=== PATIENT | male | born 1980 | race Caucasian/White ===

== ENCOUNTER 2020-12-31 19:50 | Observation (INO) | payer OTHER ==
[~2020-12-31] VITALS: Ht 177.8 cm; Wt 90.7 kg
--- NOTE | ~2020-12-31 | OP ---
[address] [address] OPERATIVE REPORT Name: SHANTEL CROWDER Room: [address] Domenico#: [id number] Admission: 01/01/21 Attend Phys: Virgie Kapoor MD Discharge: Date of : 82 Report #: [id number] THIS REPORT FOR: cc: FAM - No family physician/PCP FAM - No family physician/PCP Tae Lujan MD ~ DATE OF SURGERY: 01/01/2021 PREOPERATIVE DIAGNOSIS: An 8 mm x 10 mm mid right ureteral stone with proximal hydronephrosis. POSTOPERATIVE DIAGNOSIS: An 8 mm x 10 mm mid right ureteral stone with proximal hydronephrosis. PROCEDURE: Cystoscopy, right retrograde pyelogram, right ureteroscopy, holmium laser lithotripsy, a partial stone extraction and a right ureteral stent placement with attached string. STAFF SURGEON: Tae Lujan MD VISUAL ARTIST: None. ANESTHESIA: General. ESTIMATED BLOOD LOSS: None. COMPLICATIONS: None. SPECIMEN: Right ureteral stone fragments. DRAINS: A 28 cm x 6-Macanese right ureteral stent with attached string. INDICATIONS: The patient is a pleasant 40-year-old male with no prior personal history of kidney stones, but father has a history of kidney stones who presented with acute onset right flank pain. CT scan confirmed a 9 mm x 8 mm stone about the iliac vessels on the right hand side with proximal hydronephrosis. He was counseled regarding treatment options, elected for definitive cystoscopy, right retrograde pyelogram, right ureteroscopy, possible holmium laser lithotripsy, possible placement of right ureteral stent. After the risks and benefits of the procedure were explained, informed consent was obtained. DESCRIPTION OF PROCEDURE: The patient was taken to the operating room, comfortably placed in the dorsal lithotomy position under adequate general anesthesia. He was sterilely prepped and draped in standard fashion exposing only the genitalia. He received his [place] [address] OPERATIVE REPORT Name: SHANTEL CROWDER Sanjay Room: [address]Kevin.#: [id number] Admission: 01/01/21 Attend Phys: Virgie Kapoor MD Discharge: Date of : 82 Report #: [id number] Appropriate timeout was carried out and all were in agreement. A 22-Macanese cystoscope was placed into the urethra. Anterior urethra was normal. Sphincter was intact. Prostate showed minimal hyperplasia. Bladder was systematically viewed. Both ureteral orifices identified normal. No bladder calculi seen or formed. Bladder mucosa was smooth. A 5-Macanese open-ended ureteral catheter placed in the right ureteral orifice and a retrograde pyelogram performed showing kind of a narrow caliber ureter to a large filling defect about the iliac vessels and dilation more proximally. An 0.035 glidewire was gently placed up the right ureter and left kidney. Cystoscope was removed. A 4.5-Macanese tapered to a 6.5-Macanese Mccabe semi-rigid ureteroscope advanced through the urethra up the right ureter. A 200 micron holmium laser fiber set at 6.4 constantino fragmented the stone into multiple fragments. Stone was extremely hard, broke it into about 10 different fragments, removed 3 of them. In the process of describing the stones and breaking up, he has had the laser, had the septum, elected to go ahead and place a stent with this attached string. The cystoscope was then removed. The remaining fragments should be small enough to pass. A 28 cm x 6-Macanese ureteral stent was put in place and positioned with good coil in the right renal pelvis and good coil in the bladder. The bladder was drained. Cystoscope was then removed. He tolerated the procedure extremely well. He was extubated in the operating room, transferred to [facility] with assistance and went to recovery in stable condition. String left attached, secured to outside of the phallus with a Tegaderm. A 20 mL of lidocaine jelly was placed into the urethra. He may remove the stent on Thursday. Follow up in our office in 6 weeks with a renal ultrasound and KUB. By: [id number] Lujan MD /rohit
[2020-12-31] MEDS ORDERED: NOHOMEMEDICATIONS (20:04)
[2020-12-31 22:20] LABS: URINE BILIRUBIN NEGATIVE (Negative); URINE BLOOD 3+ (Negative); URINE CLARITY CLEAR; URINE COLOR YELLOW; URINE GLUCOSE-RANDOM NEGATIVE (Negative); URINE KETONES 3+ (Negative); URINE LEUKOCYTES-REFLEX NEGATIVE (Negative); URINE NITRITE-REFLEX NEGATIVE (Negative); URINE PROTEIN 1+ (Negative); URINE SPECIFIC GRAVITY 1.015 (1.005-1.030); URINE UROBILINOGEN 0.2 E.U./dl (0.2-1.0)
[2020-12-31 22:22] LABS: ACETEST (KETONE CONFIRMATORY) Moderate (Negative)
[2020-12-31 22:25] LABS: SQUAMOUS 0-3 Few /LPF (0-3)
[2020-12-31 22:26] LABS: BACTERIA-REFLEX 1-9 Few /HPF (None Seen); CASTS None Seen /LPF (None Seen); CRYSTALS None Seen /LPF (None Seen); URINE RBC >20 Many /HPF (0-2); URINE WBC-REFLEX 0-5 Rare /HPF (0-5)
[2020-12-31 22:33] LABS: HEMATOCRIT 44.1 % (42.0-52.0); HEMOGLOBIN 15.4 gm/dL (14.0-18.0); MCH 28.2 pg (26.0-34.0); MCV 80.6 fL (80.0-100.0); MPV 7.8 fl. (7.2-11.1); RBC 5.48 mil/uL (4.50-6.00); RDW-CV 13.9 % (10.5-14.5); WBC 9.5 thou/uL (4.0-11.0)
[2020-12-31 22:40] LABS: CALCIUM 8.8 mg/dL (8.5-10.1); CREATININE 1.1 mg/dL (0.6-1.3); POTASSIUM 3.2 mmol/L (3.5-5.1)
[2020-12-31 22:44] LABS: ALBUMIN 4.3 g/dL (3.4-5.0); TOTAL BILIRUBIN 1.2 mg/dL (<0.1-1.0); TOTAL PROTEIN 7.6 g/dL (6.4-8.2)
[2021-01-01 04:00] VITALS: BP 137/79
[2021-01-01 06:28] VITALS: BP 137/79
[2021-01-01 08:00] VITALS: BP 132/68
[2021-01-01 09:29] VITALS: BP 132/68
--- NOTE | 2021-01-01 09:33 | EKG ---
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
[2021-01-01] MEDS ORDERED: HYDROCODON-ACE1 EAC7 PO (14:01)
[2021-01-01] MEDS ORDERED: FLOMAX0.4 MG PO (14:01)
[2021-01-01 14:07] VITALS: BP 132/68
--- NOTE | 2021-01-02 18:06 | PATH ---
[address] [address] PATHOLOGY RPT PROCEDURE Name: SHANTEL CROWDER Sanjay Room: [address] Kacie Acuña#: [id number] Admission: 01/01/21 Date of : 82 Discharge: 01/01/21 Report #: [id number] Path Case #: [id number] [facility] Accession Number: [id number] . 01 Material submitted: . ureter - RIGHT URETERAL STONE. Modifiers: right . 01 Clinical history: . CYSTO W/ URETEROSCOPY,STONE MANIPULATION,STENT,LITHOTRIPTER,LASER RENAL COLIC WITH OBSTRUCTION URETERAL STONE . 02 Diagnosis: Right ureteral stone: - Grossly consistent with calculi. The specimen is sent out for further processing. Report pending outside analysis with results to follow in an addendum. LBQ 01/02/2021 1542 Local . 02 Electronically signed: . Louie Riley MD, Pathologist NPI- [id number] . 01 Gross description: . The specimen is received fresh, labeled "Shantel Crowder, right ureteral stone, no formalin" and the specimen consists of 3 ray-brown calculi aggregating 0.8 x 0.3 x 0.3 cm which are forwarded to sendouts for further processing. ([place]; 01/02/2021) DKA/DKA 01/02/2021 1537 Local . 02 Pathologist provided ICD-10: N20.1 . 02 CPT . 821753 Specimen Comment: A courtesy copy of this report has been sent to [phone], [phone] Specimen Comment: [id number] Specimen Comment: Report sent to / DR CALLES Performed at: 01 [facility] [address], [place], [place] [address] MD Terrance Price MD Phone: [phone] Performed at: 02 [facility] [address], [place], [place] [address] MD Louie Riley MD Phone: [phone]
--- NOTE | 2021-01-03 11:36 | EKG ---
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1980 Requested By: Alisha Quarles Order Number: [id number] Reading MD: Stephen Simmons Measurements Intervals [place] Rate: 60 P: 40 NM: 157 QRS: 78 QRSD: 112 T: 56 QT: 421 QTc: 421 Interpretive Statements Sinus rhythm Borderline intraventricular conduction delay Electronically Signed On 01-01-2021 9:33:15 CDT by Stephen Simmons No previous ECG available for comparison Electronically Signed On 01-03-2021 11:36:24 CDT by Stephen Simmons [email or web address] <ELECTRONICALLY SIGNED> By: Ru Simmons MD, [facility] 01/03/21 1136 07 07 Ru Simmons MD, [facility] /EPI
== END 2021-01-01 14:45 | disposition home or self-care (01) ==
LOC: M.ERS 19:50 → M.TBA-ER 01-01 00:31
PROVIDERS: Personal Emergency Response Attendant; ADMIT Internal Medicine; ATTEND Internal Medicine
DX: N13.2 Hydronephrosis with renal and ureteral calculous obstruction (principal); R11.0 Nausea; E87.6 Hypokalemia; Z20.822 Contact with and (suspected) exposure to COVID-19; Z79.899 Other long term (current) drug therapy